=== PATIENT | female | born 1950 | race Caucasian/White ===

== ENCOUNTER 2017-10-18 22:06 | Inpatient (IN) | payer OTHER ==
[~2017-10-18] VITALS: Ht 165.1 cm; Wt 78.5 kg
[2017-10-19 09:36] VITALS: BP 138/74
[2017-10-19 19:40] VITALS: BP 135/67
[2017-10-19 23:04] VITALS: BP 112/60
[2017-10-19 23:46] VITALS: BP 102/57
[2017-10-20 03:36] VITALS: BP 96/58
[2017-10-20 08:00] VITALS: BP 101/56
[2017-10-20 10:04] LABS: APPEARANCE CLEAR ((CLEAR)); BILIRUBIN NEGATIVE; BLOOD SMALL; COLOR STRAW ((YELLOW)); GLUCOSE (STRIP) NEGATIVE; KETONES NEGATIVE; LEUKOCYTES NEGATIVE; NITRITE NEGATIVE; PROTEIN (STRIP) NEGATIVE; SPECIFIC GRAVITY 1.002 (1.000-1.030); UROBILINOGEN 0.2 MG/DL (0.2-1.0)
[2017-10-20 10:14] LABS: BACTERIA RARE /HPF; EPITHELIAL CELLS RARE /HPF; MUCUS NONE SEEN /LPF; RED BLOOD CELLS 0-5 /HPF (0-5); WHITE BLOOD CELLS 0-5 /HPF (0-5)
[2017-10-20 12:00] VITALS: BP 109/61
[2017-10-20 15:36] VITALS: BP 117/58
[2017-10-20 20:10] VITALS: BP 107/61
[2017-10-20 23:03] VITALS: BP 118/72
[2017-10-21 06:23] LABS: BASOPHIL (%) 0.1 % (0-1); EOSINOPHIL (%) 0.6 % (0-5); HEMATOCRIT 35.5 % (36.0-46.0); HEMOGLOBIN 11.6 G/DL (11.9-15.5); IMMATURE GRANULOCYTE (%) 0.4 % (0.0-0.7); LYMPHOCYTE (%) 11.1 % (15-42); LYMPHOCYTE COUNT 0.8 K/uL (1.0-2.8); MCH 31.6 PG (29.0-34.0); MCHC 32.7 G/DL (30.0-36.0); MCV 96.7 FL (83-99); MONOCYTE COUNT 0.4 K/uL (0-0.8); NEUTROPHIL (%) 81.8 % (45-76); NEUTROPHIL COUNT 5.6 K/uL (1.8-6.4); RBC DIS.WIDTH-CV 12.6 % (11.8-14.6); RBC DIS.WIDTH-SD 44.6 % (39-53); RED BLOOD COUNT 3.67 M/uL (3.80-5.20); WHITE BLOOD COUNT 6.8 K/uL (4.1-10.2)
[2017-10-21 06:27] LABS: PLATELET COUNT 125 K/uL (156-360)
[2017-10-21 06:49] LABS: CHLORIDE 107 MEQ/L (99-109); CREATININE 0.8 MG/DL (0.6-1.3); GFR ESTIMATE (CALCULATED) > 59 mL/min/; GLUCOSE 90 mg/dL (70-99); POTASSIUM 4.1 MEQ/L (3.7-5.4); SODIUM 141 MEQ/L (136-147); UREA NITROGEN (BUN) 13 mg/dL (9-23)
[2017-10-21 07:40] VITALS: BP 127/75
== END 2017-10-21 16:08 | disposition home or self-care (01) | DRG 743 ==
LOC: ENRESERV 22:06 → 2SOUTH 10-19 09:06 → ENRESERV 10-19 17:50 → 2EAST 10-19 19:21 → ENPENDDIS 10-21 16:00 → 2EAST 10-21 16:08
PROVIDERS: Obstetrics & Gynecology Gynecology
PROC: 0TJB8ZZ Inspection of Bladder, Via Natural or Artificial Opening Endoscopic (ICD-10-PCS; principal; 2017-10-19)
PROC: 0UT50ZZ Resection of Right Fallopian Tube, Open Approach (ICD-10-PCS; principal; 2017-10-19)
PROC: 0USG0ZZ Reposition Vagina, Open Approach (ICD-10-PCS; principal; 2017-10-19)
PROC: 0UT90ZZ Resection of Uterus, Open Approach (ICD-10-PCS; principal; 2017-10-19)
PROC: 0UT00ZZ Resection of Right Ovary, Open Approach (ICD-10-PCS; principal; 2017-10-19)
DX: N81.4 Uterovaginal prolapse, unspecified (principal); N81.11 Cystocele, midline; N95.2 Postmenopausal atrophic vaginitis; R32 Unspecified urinary incontinence; E66.3 Overweight; Z68.28 Body mass index [BMI] 28.0-28.9, adult; Z87.891 Personal history of nicotine dependence
CPT/HCPCS: 80048; 81003; 85025; 87086; 88307; C1781; J0330; J0690; J1170; J1650; J1885; J2001; J2250; J2405; J3010; J3475; J7120